=== PATIENT | female | born 1950 | race Asian ===

== ENCOUNTER 2018-06-19 06:00 | Day surgery (SDC) | payer OTHER ==
[~2018-06-19] VITALS: Ht 157.5 cm; Wt 54.1 kg
[~2018-06-19 06:00] MED LIST: SODIUM CHLORIDE 0.9% 1,000 ML IV ONE
[2018-06-19] MEDS ORDERED: BENZOCAINE 20% 50 MCG/SPRAY 57 GM TP ONE (06:01)
[2018-06-19] MEDS ORDERED: LIDOCAINE 4% 50 ML SOLUTION TP ONE (06:01)
[2018-06-19] MEDS ORDERED: ALBUTEROL SULFATE 2.5 MG/0.5 ML NEB SOLUTION NEB ONE (06:01)
[2018-06-19] MEDS ORDERED: LIDOCAINE 2% 5 ML JELLY TP ONE (06:01)
[2018-06-19] MEDS ORDERED: LOSA50TA64 PO (06:56)
[2018-06-19] MEDS ORDERED: METF-960 PO (06:56)
[2018-06-19] MEDS ORDERED: AMLO-511 PO (06:56)
[2018-06-19] MEDS ORDERED: DONE10TA8 PO (06:56)
[2018-06-19] MEDS ORDERED: OMEP20 PO (06:56)
[2018-06-19] MEDS ORDERED: NAPR-58 PO (06:56)
[2018-06-19] MEDS ORDERED: CETI-170 PO (06:56)
[2018-06-19] MEDS ORDERED: ATOR40TA28 PO (06:56)
[2018-06-19] MEDS ORDERED: SODIUM CHLORIDE 0.9% 1,000 ML IV ONE (07:30)
[2018-06-19 07:39] LABS: GLUCOMETER DEV NAME(LOC) SDS.; GLUCOSE,POINT OF CARE 89 MG/DL (70-110)
[2018-06-19] MEDS ORDERED: FentaNYL CITRATE-PF 100 MCG/2 ML VIAL ONE (07:41)
[2018-06-19] MEDS ORDERED: MIDAZOLAM HCL 2 MG/2 ML VIAL ONE (07:41)
[2018-06-19] MEDS ORDERED: MethylPREDNISolone SOD SUCC 125 MG/2 ML VIAL IVP ONE (08:30)
[2018-06-19] MEDS ORDERED: OXYGEN THERAPY IH SCH (20:00)
== END 2018-06-19 09:45 | disposition home or self-care (01) ==
LOC: SURGERY 06:00
PROVIDERS: ATTEND Internal Medicine Critical Care Medicine
DX: J38.4 Edema of larynx (principal); B37.0 Candidal stomatitis; J84.111 Idiopathic interstitial pneumonia, not otherwise specified; J98.09 Other diseases of bronchus, not elsewhere classified; J98.8 Other specified respiratory disorders; J47.9 Bronchiectasis, uncomplicated; I10 Essential (primary) hypertension; E11.9 Type 2 diabetes mellitus without complications; I70.0 Atherosclerosis of aorta; Z79.84 Long term (current) use of oral hypoglycemic drugs; Z90.49 Acquired absence of other specified parts of digestive tract; Z79.899 Other long term (current) drug therapy
CPT/HCPCS: 31623; 31624; 71045; 82962; 87015; 87070; 87101; 87206; 87220; 88108; 88312; J2250; J2930; J3010; J7030